=== PATIENT | male | born 1995 | race Caucasian/White ===

== ENCOUNTER 2017-02-18 08:31 | Emergency (ER) | payer OTHER ==
[~2017-02-18 08:31] MED LIST: CARAFATE EQUIVAL1 GM PO; PRILOSEC20 MG PO; PROTONIX40 M1 PO; ZOFRAN ODT4 MG PO
--- NOTE | 2017-02-18 10:23 | DIAGNOSTIC IMAGING REPORT ---
PROCEDURE: XR CHEST 2 VIEW INDICATION: CHEST PAIN TECHNIQUE: Two views. COMPARISON: 03/23/2016 FINDINGS: The cardiomediastinal contour is stable, within normal limits. The central vasculature is not congested. There is a hazy alveolar consolidation in the posterior right lower lobe with mild right hemithorax volume loss. The left lung is clear. No pleural effusion. The visualized osseous structures are intact. IMPRESSION: 1. Posterior right lower lobe pneumonia and/or atelectasis. 2. No effusion.
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
--- NOTE | 2017-02-18 14:02 | ED ORDER SUMMARY ---
..... Patient: MARLEN PEOPLES OrderSheet [facility] VisitID: [id number] [place] [address] 21y, M Registration Date/Time: 02/18/2017 ORDER SHEET Weight: 65.7 kg (stated) Allergies: Aspirin, Tylenol, Ibuprofen GENERAL ORDERS: UA-Culture if indicated Urgent (08:57 02/18/2017 Juancarlos Reyna) (Ack 8:58 TBergley) (11:10 TBergley) Chest 2V Urgent (09:16 02/18/2017 Juancarlos Reyna) (Ack 9:20 TBergley) (9:31 SReitz R.N.) Tag Maker (Continuous) (CP) (:02/18/2017 Juancarlos Reyna) (Ack 9:20 TBergley) (9:25 SReitz R.N.) CBC w Diff Urgent (:02/18/2017 Juancarlos Reyna) (Ack 9:20 TBergley) (9:37 SReitz R.N.) CMP Urgent (:18 02/18/2017 Juancarlos Reyna) (Ack 9:20 TBergley) (9:37 SReitz R.N.) PT with INR Urgent (:02/18/2017 Juancarlos Reyna) (Ack 9:20 TBergley) (9:37 SReitz R.N.) PTT Urgent (:02/18/2017 Juancarlos Reyna) (Ack 9:20 TBergley) (9:37 SReitz R.N.) Lipase Urgent (:02/18/2017 Juancarlos Reyna) (Ack 9:20 TBergley) (9:37 SReitz R.N.) Culture, Strep Screen Urgent (:02/18/2017 Juancarlos Reyna) (Ack 9:20 TBergley) (9:37 SReitz R.N.) Pulse oximeter (:02/18/2017 Juancarlos Reyna) (Ack 9:20 TBergley) (9:25 SReitz R.N.) MEDICATION ORDERS: GI Cocktail WHITE PO 30 mL (NOW) (09:30 02/18/2017 Juancarlos Reyna) (Ack 9:33 Gianluca R.N.) (9:38 Gianluca R.N.) Azithromycin PO 500 mg (NOW) (10:28 02/18/2017 Juancarlos Reyna) (Ack 10:30 Gianluca R.N.) (10:37 Gianluca R.N.) Tylenol PO 650 mg (NOW) (10:29 02/18/2017 Juancarlos Reyna) (Ack 10:30 Gianluca R.N.) (Cancelled: Patient Rvxsegc50:37 Gianluca R.NMoustapha) reports having hx of "liver problems from drinking." okay for one time dose today." Tylenol PO 650 mg (NOW) (11:17 02/18/2017 Gianluca R.N. verbal order read back to Juancarlos Reyna) (11:18 SReitz R.N.) IV FLUIDS: IV NS : initial bolus none -, then 1000 mL/hr for X1 (NOW) (09:05 02/18/2017 Gianluca R.NMoustapha per protocol) (9:06 Gianluca R.N.) Morphine IV 4 mg (HIGH ALERT MEDICATION, NOW) (09:16 02/18/2017 Juancarlos Reyna) (Ack 9:33 Gianluca R.N.) (9:40 SReitz R.N.) IV NS : initial bolus 1000 mL (1000 mL/hr), then none - for X1 (NOW) (11:37 02/18/2017 Juancarlos Reyna) (11:51 Elizaitz R.N.) Morphine IV 8 mg (HIGH ALERT MEDICATION, NOW) (12:22 02/18/2017 Juancarlos Renya) (Ack 12:27 Gianluca R.N.) (12:52 SReitz R.N.) ORDER SHEET NOTES: [Electronically signed by Miriam Charles R.N. (14:14 02/18/2017)] [Electronically signed by Berry Atkinson Dr. (14:16 02/18/2017)] [Electronically locked/signed by Miriam Charles R.N. (14:14 02/18/2017)]
--- NOTE | 2017-02-18 14:02 | ED CLINICAL REPORT ---
Clinical Report - Physicians/Mid Levels [facility] [address] [place] [address] 02/18/2017 8:32 Patient: MARLEN PEOPLES Time Seen: 904. Arrived- By private vehicle. Historian- patient. HISTORY OF PRESENT ILLNESS Chief Complaint: COUGH, SORE THROAT, FEVER, CHILLS and MUSCLE ACHES. This started past 1 week and is still present and worsening. It was abrupt in onset and has been constant but is not gone now. The illness is described as severe. The patient has had a cough, a sore throat, nasal congestion, fever and chills. He has had muscle aches and a nasal discharge. He has had chest discomfort (right). (reports hx of eosinophilic esophagitis with post tussive nausea and vomiting. reports having blood tinged sputum. also with diarrhea and intermittent generalized abdominal pain to the epigastrium. no swelling of the legs. No history of PE/DVT, no recent trauma or surgery. No hemoptysis. no family history of early cardiac disease.). Additional history - The patient has had contact with a sick family member. No recent travel. Similar symptoms previously: None. Recent medical care: Not recently seen/assessed. REVIEW OF SYSTEMS All systems otherwise negative, except as recorded above. PAST HISTORY See nurses notes. SOCIAL HISTORY Never smoker. Alcohol use. Patient is a recovering alcoholic. History of drug use. No recent travel. Is a local resident. FAMILY HISTORY (no family history of bleeding problems). ADDITIONAL NOTES The nursing notes have been reviewed. PHYSICAL EXAM Vital Signs: 02/18/2017 08:38 BP: 115/58. HR: 93. RR: 22. O2 saturation: 97%. Temp: 101.7 F. Oxygen saturation normal. Appearance: Alert. Patient in mild distress. (pleasant. non-toxic.). Eyes: Pupils equal, round and reactive to light. Eyes normal inspection. ENT: Ears normal. Nose normal. Moderate generalized pharyngeal erythema. No pharyngeal ulcerations. No right tonsillar exudate, right tonsillar abscess, right tonsillar swelling, left tonsillar exudate, left tonsillar abscess, left tonsillar swelling or left peritonsillitis. Pharynx normal. Uvula midline. (no brawny edema). Neck: Normal inspection. Neck supple. No meningeal signs or lymphadenopathy. CVS: Normal heart rate and rhythm. Heart sounds normal. Pulses normal. Respiratory: No respiratory distress. Breath sounds normal. No rales, rhonchi, wheezes or stridor. Abdomen: Soft and nontender. No organomegaly. Skin: Skin warm and dry. Normal skin color. No rash. Normal skin turgor. Extremities: Extremities exhibit normal ROM. No lower extremity edema. Neuro: Oriented X 3. No motor deficit. No sensory deficit. LABS, X-RAYS, AND EKG Chest X-ray: (PROCEDURE: XR CHEST 2 VIEW INDICATION: CHEST PAIN TECHNIQUE: Two views. COMPARISON: 03/23/2016 FINDINGS: The cardiomediastinal contour is stable, within normal limits. The central vasculature is not congested. There is a hazy alveolar consolidation in the posterior right lower lobe with mild right hemithorax volume loss. The left lung is clear. No pleural effusion. The visualized osseous structures are intact. IMPRESSION: 1. Posterior right lower lobe pneumonia and/or atelectasis. 2. No effusion.). Views: PA and lateral. The X-rays were independently viewed by me and interpreted by the radiologist. The X-rays were discussed with the radiologist (via pacs). Laboratory Tests: UA-Culture if indicated: (CHARLIE: 02/18/2017 11:00) ( MsgRcvd 02/18/2017 11:33) Final results Test Result Flag Units (Reference) URINE COLOR YELLOW URINE APPEARANCE CLEAR URINE GLUCOSE NEGATIVE (NEGATIVE) URINE BILIRUBIN NEGATIVE (NEGATIVE) URINE KETONE 1+ (NEGATIVE) URINE SPECIFIC GRAVITY 1.010 (1.010-1.030) URINE PH 6.5 (5.0-8.0) URINE PROTEIN NEGATIVE (NEGATIVE) URINE UROBILINOGEN 1.0 EU/dL (0.2-1.0) URINE NITRITE NEGATIVE (NEGATIVE) URINE BLOOD NEGATIVE (NEGATIVE) URINE LEUK ESTERASE NEGATIVE (NEGATIVE) URINE RBC NONE SEEN rbc/hpf (0-1) URINE WBC 3-5 wbc/hpf (0-1) URINE EPITHELIAL CELLS RARE EPI/hpf (0-5) URINE BACTERIA TRACE (<1+) (NONE SEEN) URINE COMMENT CULT NOT INDICATED URINE CULTURES ARE SET-UP BASED ON THE FOLLOWING CRITERIA:POSITIVE NITRITEPOSITIVE LEUKOCYTE ESTERASEGREATER THAN 10 WHITE BLOOD CELLSMODERATE (2+) OR GREATER BACTERIA CBC w Diff: (CHARLIE: 02/18/2017 09:00) ( [facility] 02/18/2017 09:36) Final results Test Result Flag Units (Reference) WHITE BLOOD COUNT 4.9 K/uL (4.5-11.5) RED BLOOD COUNT 5.09 M/uL (4.50-5.90) HEMOGLOBIN 15.2 gm/dL (13.5-17.5) HEMATOCRIT 44.0 % (41.0-53.0) MEAN CELL VOLUME 86 fL (80-100) MEAN CORPUSCULAR HGB 30 pg (26-34) MEAN CORPUSCULAR HGB CONC 35 g/dL (31-37) RED CELL DISTRIBUTION WIDTH 12.4 % (11.6-14.8) PLATELET COUNT 110 L K/uL (150-400) NEUTROPHIL % 74.9 % (50-75) LYMPH % 19.5 L % (25-40) MONO % 5.6 % (3-14) EOSINOPHIL % 0 % (0-4) BASOPHIL % 0 % (0-2) PT with INR: (CHARLIE: 02/18/2017 09:00) ( [facility] 02/18/2017 09:36) Final results Test Result Flag Units (Reference) INR 1.1 (0.8-1.2) Low Intensity Therapy: INR 1.5-2.0 PT range 18.5-23.1Mod.Intensity Therapy: INR 2.0-3.0 PT range 23.1-31.5High Intensity Therapy: INR 2.5-3.5 PT range 27.4-35.5High Intensity Therapy 2: INR 3.0-4.0 PT range 31.5-39.3 APTT 36 H SECONDS (24-34) CMP: (CHARLIE: 02/18/2017 09:00) ( [facility] 02/18/2017 09:58) Final results Test Result Flag Units (Reference) GLUCOSE 96 mg/dL (70-110) BUN 11 mg/dL (7-18) CREATININE 1.1 mg/dL (0.6-1.3) Estimated GFR >60 mL/min Estimated GFR- >60 mL/min Note: Persistent reduction over 3 months in eGFR<60 mL/min/1.73 m2 defines CKD. Patients with eGFR values>=60 mL/min/1.73 m2 may also have CKD if evidence ofpersistent proteinuria. Additional information may be foundat www.kidney.org. SODIUM 137 mmol/L (136-145) POTASSIUM 3.3 L mmol/L (3.5-5.1) CHLORIDE 97 L mmol/L (98-107) CARBON DIOXIDE 30 mmol/L (21-32) CALCIUM 8.3 L mg/dL (8.5-10.1) TOTAL PROTEIN 7.0 g/dL (6.4-8.2) ALBUMIN 3.4 g/dL (3.3-5.0) BILIRUBIN, TOTAL 0.6 mg/dL (0.0-1.0) ALKALINE PHOSPHATASE 54 U/L (46-116) AST (SGOT) 38 H U/L (15-37) ALT (SGPT) 21 U/L (12-78) LIPASE 128 U/L (73-393) Culture, Strep Screen: (CHARLIE: 02/18/2017 09:35) ( MsgRcvd 02/18/2017 10:25) Final results Test Result Flag Units (Reference) RAPID STREP SCREEN - THROAT CALLED TO: ERICKA KIRBY RN -- DATE: 02/18/17 POSITIVE SCREEN: RAPID STREP SCREEN: POSITIVE FOR GROUP A STREP . PROGRESS AND PROCEDURES Course of Care: he patient is a pleasant 21-year-old male presenting for evaluation of fever and symptoms that are likely upper respiratory tract in nature. Differential diagnosis includes pneumonia, strep pharyngitis, viral pharyngitis or viral syndrome. Patient is agreeable to the treatment and plan. Patient is also reporting abdominal pain, however on examination appears to be rightlower chest in location. Symptoms are atypical and would be concerning for a pneumonia. No concern for pulmonary embolism or atypical reason dish return for acute myocardial infarction based on patient's age and lack ofrisk factors otherwise. Fluids and pain medication of been ordered. Patient is agreeable to the treatment plan. Patient offered Tylenol for the fever. head discussion with the patient in regards to his history of liver disease however patient has been clean and sober for several months and will check on patient's liver function studies for evaluation of any hepatitis. The patient does have hepatitis, will not recommend patient have Tylenol. patient without signs of cirrhosis. INR is noted to be normal. Feel the benefits of a single dose ofTylenol here in the emergency Department outweighs the risks. The patient's workup was remarkable for a positive strep screen as well as pneumonia noted on the right lower lobe. Patient reports not feeling improved with the medications provided. Additional liter fluid and pain medication has been ordered. Because the patient reported not feeling better, encouraged patient to be admitted to the hospital however patient declines at this time. Patient was agreeable to staying here in the emergency Department further for more monitoring. patient was monitored in the emergency department and had significant improvement of the symptoms. Discussed with the patient is workup here in the emergency department including diagnosis, home care, follow-up, and return precautions. All questions have been answered. The patient expressed understanding of these instructions and was agreeable to them. Disposition: Discharged. Condition: good. CLINICAL IMPRESSION 02/18/2017 12:33 BP: 115/60. HR: 77. RR: 14. O2 saturation: 93%. 02/18/2017 11:18 Temp: 102.8 F. Blood pressure normal. Febrile. Oxygen saturation normal. Bacterial pneumonia. Empiric antibiotics given in the ED. Mild dehydration Acute streptococcal pharyngitis INSTRUCTIONS Warnings: GENERAL WARNINGS: Return or contact your physician immediately if your condition worsens or changes unexpectedly, if not improving as expected, or if other problems arise. Specifically return if pain, vomiting, bleeding, breathing difficulty or fever. Your Current Medications: CONTINUE TAKING THE FOLLOWING MEDICATIONS: "inhaler for esophagitis"*. Pantoprazole Sodium Oral : 20 mg daily. Prescription Medications: Zithromax Z-Hay: Take according to package instructions. No refills. Substitution is permissible. morphine sulfate IR 15 mg tab. Take 1 tab PO every 6 hours as needed for pain. Disp 12 tabs. No refills. Substitution allowed. Follow-up: Return to the emergency department as needed. Follow up with your doctor in two days. Reason for referral: recheck today's concerns. Summary of care provided to patient via paper. Screening today revealed the patient's blood pressure to be in the normal range. The patient should follow up with a primary care provider for blood pressure management. Understanding of the discharge instructions verbalized by patient. (Electronically signed by Berry Atkinson Dr. 02/18/2017 14:16)
--- NOTE | 2017-02-18 14:02 | ED ORDER SUMMARY ---
..... Patient: MARLEN PEOPLES OrderSheet [facility] VisitID: [id number] [place] [address] 21y, M Registration Date/Time: 02/18/2017 ORDER SHEET Weight: 65.7 kg (stated) Allergies: Aspirin, Tylenol, Ibuprofen GENERAL ORDERS: UA-Culture if indicated Urgent (08:57 02/18/2017 Juancarlos Reyna) (Ack 8:58 TBergley) (11:10 TBergley) Chest 2V Urgent (09:16 02/18/2017 Juancarlos Reyna) (Ack 9:20 TBergley) (9:31 SReitz R.N.) Coal Crusher Operator (Continuous) (CP) (:02/18/2017 Juancarlos Reyna) (Ack 9:20 TBergley) (9:25 SReitz R.N.) CBC w Diff Urgent (:02/18/2017 Juancarlos Reyna) (Ack 9:20 TBergley) (9:37 SReitz R.N.) CMP Urgent (:18 02/18/2017 Juancarlos Reyna) (Ack 9:20 TBergley) (9:37 SReitz R.N.) PT with INR Urgent (:02/18/2017 Juancarlos Reyna) (Ack 9:20 TBergley) (9:37 SReitz R.N.) PTT Urgent (:02/18/2017 Juancarlos Reyna) (Ack 9:20 TBergley) (9:37 SReitz R.N.) Lipase Urgent (:02/18/2017 Juancarlos Reyna) (Ack 9:20 TBergley) (9:37 SReitz R.N.) Culture, Strep Screen Urgent (:02/18/2017 Juancarlos Reyna) (Ack 9:20 TBergley) (9:37 SReitz R.N.) Pulse oximeter (:02/18/2017 Juancarlos Reyna) (Ack 9:20 TBergley) (9:25 SReitz R.N.) MEDICATION ORDERS: GI Cocktail WHITE PO 30 mL (NOW) (09:30 02/18/2017 Juancarlos Reyna) (Ack 9:33 Gianluca R.N.) (9:38 Gainluca R.N.) Azithromycin PO 500 mg (NOW) (10:28 02/18/2017 Juancarlos Reyna) (Ack 10:30 Gianluca R.N.) (10:37 Gianluca R.N.) Tylenol PO 650 mg (NOW) (10:29 02/18/2017 Juancarlos Reyna) (Ack 10:30 Gianluca R.N.) (Cancelled: Patient Tbuptap93:37 Gianluca R.NMoustapha) reports having hx of "liver problems from drinking." okay for one time dose today." Tylenol PO 650 mg (NOW) (11:17 02/18/2017 Gianluca R.N. verbal order read back to Juancarlos Reyna) (11:18 SReitz R.N.) IV FLUIDS: IV NS : initial bolus none -, then 1000 mL/hr for X1 (NOW) (09:05 02/18/2017 Gianluca R.NMoustapha per protocol) (9:06 Gianluca R.N.) Morphine IV 4 mg (HIGH ALERT MEDICATION, NOW) (09:16 02/18/2017 Juancarlos Reyna) (Ack 9:33 Gianluca R.N.) (9:40 SReitz R.N.) IV NS : initial bolus 1000 mL (1000 mL/hr), then none - for X1 (NOW) (11:37 02/18/2017 Juancarlos Reyna) (11:51 Elizaitz R.N.) Morphine IV 8 mg (HIGH ALERT MEDICATION, NOW) (12:22 02/18/2017 Juancarlos Reyna) (Ack 12:27 Gianluca R.N.) (12:52 SReitz R.N.) ORDER SHEET NOTES: [Electronically signed by Miriam Charles R.N. (14:14 02/18/2017)] [Electronically signed by Berry Atkinson Dr. (14:16 02/18/2017)] [Electronically locked/signed by Miriam Charles R.N. (14:14 02/18/2017)]
--- NOTE | 2017-02-18 14:16 | ED DISCHARGE INSTRUCTIONS ---
Patient: MARLEN PEOPLES General Instructions [facility] VisitID: [id number] [place] [address] 21y, M Registration Date/Time: 02/18/2017 02/18/2017 12:33 BP: 115/60. HR: 77. RR: 14. O2 saturation: 93%. 02/18/2017 11:18 Temp: 102.8 F. Blood pressure normal. Febrile. Oxygen saturation normal. Bacterial pneumonia. Empiric antibiotics given in the ED. Mild dehydration Acute streptococcal pharyngitis INSTRUCTIONS Warnings: GENERAL WARNINGS: Return or contact your physician immediately if your condition worsens or changes unexpectedly, if not improving as expected, or if other problems arise. Specifically return if pain, vomiting, bleeding, breathing difficulty or fever. Your Current Medications: CONTINUE TAKING THE FOLLOWING MEDICATIONS: "inhaler for esophagitis"*. Pantoprazole Sodium Oral : 20 mg daily. Prescription Medications: Zithromax Z-Hay: Take according to package instructions. No refills. Substitution is permissible. morphine sulfate IR 15 mg tab. Take 1 tab PO every 6 hours as needed for pain. Disp 12 tabs. No refills. Substitution allowed. Follow-up: Return to the emergency department as needed. Follow up with your doctor in two days. Reason for referral: recheck today's concerns. Summary of care provided to patient via paper. Screening today revealed the patient's blood pressure to be in the normal range. The patient should follow up with a primary care provider for blood pressure management. Understanding of the discharge instructions verbalized by patient. ADDITIONAL INFORMATION Pharyngitis: Strep [Confirmed] Your test for strep throat was positive. Strep throat is a contagious illness. It is spread by coughing, kissing or by touching others after touching your mouth or nose. Symptoms include throat pain which is worse with swallowing, aching all over, headache and fever. You will be treated with an antibiotic which should make you start to feel better within 1-2 days. Home Care: Rest at home and drink plenty of fluids to avoid dehydration. No school or work for the first two days on antibiotics. You will not be contagious after this time and if you are feeling better, you can return to school or work. Take your antibiotics for a full 10 days, even if you feel better after the first few days of treatment. This is very important to prevent heart or kidney disease that can result as a complication of untreated strep throat infection. Children: Use acetaminophen (Tylenol) for fever, fussiness or discomfort. In infants over six months of age, you may use ibuprofen (Children's Motrin) instead of Tylenol. [NOTE: If your child has chronic liver or kidney disease or ever had a stomach ulcer or GI bleeding, talk with your doctor before using these medicines.] (Aspirin should never be used in anyone under 18 years of age who is ill with a fever. It may cause severe liver damage.)Adults: You may use acetaminophen (Tylenol) or ibuprofen (Motrin, Advil) to control pain or fever, unless another medicine was prescribed for this. [NOTE: If you have chronic liver or kidney disease or ever had a stomach ulcer or GI bleeding, talk with your doctor before using these medicines.] Throat lozenges or sprays (Chloraseptic and others) will reduce pain. Gargling with warm salt water will also reduce throat pain. Dissolve 1/2 teaspoon of salt in 1 glass of warm water. This is especially useful just before meals. Follow Up with your doctor or as directed by our staff if you are not improving over the next week. Get Prompt Medical Attention if any of the following occur: Fever of 100.4F (38C) oral or higher, not better with fever medication New or worsening ear pain, sinus pain or headache Painful lumps in the back of your neck Unable to swallow liquids or open your mouth wide due to throat pain Trouble breathing or noisy breathing Muffled voice New rash Pneumonia (Adult) Pneumonia is an infection deep within the lung, in the small air sacs (alveoli). It may be due to a virus or bacteria and is usually treated with an antibiotic. Severe cases require treatment in the hospital. Milder cases can be treated at home. Symptoms usually start to improve during the first2 days of treatment. Home Care: Rest at home for the first 23 days or until you feel stronger. When resuming activity, dont let yourself become overly tired. Avoid exposure to cigarette smoke (yours or others). You may use acetaminophen (Tylenol) or ibuprofen (Motrin, Advil) to control fever or pain, unless another medicine was prescribed. [NOTE: If you have chronic liver or kidney disease or ever had a stomach ulcer or GI bleeding, talk with your doctor before using these medicines.] (Aspirin should never be used in anyone under 18 years of age who is ill with a fever. It may cause severe liver damage.) Your appetite may be poor so a light diet is fine. Keep well hydrated by drinking 68 glasses of fluids per day (water, sport drinks such as Gatorade, sodas without caffeine, juices, tea, soup, etc.). This will help loosen secretions in the lung, making it easier for you to cough up the phlegm (sputum). If you also have heart or kidney disease, check with your doctor before you drink extra amounts of fluids. Finish all antibiotic medicine prescribed, even if you are feeling better after a few days. Follow Up with your doctor in the next 23 days (or as advised) to be sure you are responding properly to the medicine. [NOTE: If you are age 65 or older, or if you have chronic lung disease (asthma, emphysema or COPD), we recommendthe pneumococcal vaccination and a yearlyinfluenzavaccination(flu-shot) every . Ask your doctor about this.] Get Prompt Medical Attention if any of the following occur: Not getting better within the first 48 hours of treatment Increasing shortness of breath or rapid breathing (over 25 breaths/minute) Coughing up blood or increasing chest pain with breathing Fever of 100.4F (38C) oral or higher, not better with fever medication Increasing weakness, dizziness or fainting Increasing thirst or dry mouth Sinus pain, headache or a stiff neck Chest pain not caused by coughing Dehydration (Adult) Dehydration occurs when your body loses too much fluid. This may be the result of vomiting a lot or from diarrhea,sweating a lot, or a high fever. It may also happen if you dont drink enough fluid when youre sick. Misuse of diuretics (water pills) can also be a cause. Symptoms include thirst and feeling dizzy, weak, fatigued, or very drowsy. The diet described below is usually enough to treat most cases. Sometimes you may needmedicine. Home Care Follow these guidelines for home care: Drink at least 12 8-ounce glasses of fluid every day to overcome the dehydration. Fluid may include water; orange juice; lemonade; apple, grape, and cranberry juice; clear fruit drinks; electrolyte replacement and sports drinks; and teas and coffee without caffeine. If you have been diagnosed with a kidney disease, ask your doctor how much and what types of fluids you should drink to prevent dehydration. If you have kidney disease, drinking too much fluid can cause it build up in the your body and be dangerous to your health. If you have fever, muscle aching, or headache from a viral syndrome, you may useacetaminophen or ibuprofen, unless another medicine was prescribed for this.If you have chronic liver or kidney disease or ever had a stomach ulcer or GI bleeding, talk with your doctor before using these medicines. Don't take aspirin if you are younger than 18 and are ill with a fever.Aspirin raises the chance forsevere liver injury. Follow-up care Follow up with your health care provider if you don't get better in the next 24 to 48 hours. When to seek medical care Get prompt medical attention if any of theseoccur: Continued vomiting (cant keep liquids down) Frequent diarrhea (more than 5 times a day); blood (red or black color) or mucus in diarrhea Blood in vomit or stool Swollen abdomen or increasing abdominal pain Weakness, dizziness, or fainting Unusually drowsy or confused Reduced urine output or extreme thirst Fever of 100.4 F (38 C) oral or higher that does not get better with fever medication Azithromycin Oral tablet What is this medicine? AZITHROMYCIN (az ith siddharth MYE sin) is a macrolide antibiotic. It is used to treat or prevent certain kinds of bacterial infections. It will not work for colds, flu, or other viral infections. How should I use this medicine? Take this medicine by mouth with a full glass of water. Follow the directions on the prescription label. The tablets can be taken with food or on an empty stomach. If the medicine upsets your stomach, take it with food. Take your medicine at regular intervals. Do not take your medicine more often than directed. Take all of your medicine as directed even if you think your are better. Do not skip doses or stop your medicine early. Talk to your child development specialist regarding the use of this medicine in children. Special care may be needed. What side effects may I notice from receiving this medicine? Side effects that you should report to your doctor or health clinical care manager as soon as possible: allergic reactions like skin rash, itching or hives, swelling of the face, lips, or tongue confusion, nightmares or hallucinations dark urine difficulty breathing hearing loss irregular heartbeat or chest pain pain or difficulty passing urine redness, blistering, peeling or loosening of the skin, including inside the mouth white patches or sores in the mouth yellowing of the eyes or skin Side effects that usually do not require medical attention (report to your doctor or health clinical care manager if they continue or are bothersome): diarrhea dizziness, drowsiness headache stomach upset or vomiting tooth discoloration vaginal irritation What may interact with this medicine? Do not take this medicine with any of the following medications: lincomycin This medicine may also interact with the following medications: amiodarone antacids cyclosporine digoxin magnesium nelfinavir phenytoin warfarin What if I miss a dose? If you miss a dose, take it as soon as you can. If it is almost time for your next dose, take only that dose. Do not take double or extra doses. Where should I keep my medicine? Keep out of the reach of children. Store at room temperature between 15 and 30 degrees C (59 and 86 degrees F). Throw away any unused medicine after the expiration date. What should I tell my health care provider before I take this medicine? They need to know if you have any of these conditions: kidney disease liver disease irregular heartbeat or heart disease an unusual or allergic reaction to azithromycin, erythromycin, other macrolide antibiotics, foods, dyes, or preservatives or trying to get breast-feeding What should I watch for while using this medicine? Tell your doctor or health clinical care manager if your symptoms do not improve. Do not treat diarrhea with over the counter products. Contact your doctor if you have diarrhea that lasts more than 2 days or if it is severe and watery. This medicine can make you more sensitive to the sun. Keep out of the sun. If you cannot avoid being in the sun, wear protective clothing and use sunscreen. Do not use sun lamps or tanning beds/booths. You have been given the following additional information: Pharyngitis, Strep (Confirmed) Pneumonia (Adult) Dehydration (Adult) Azithromycin Oral tablet (Electronically signed by Berry Atkinson Dr. 02/18/2017 14:16)
--- NOTE | 2017-02-18 14:16 | ED MED RECONCILIATION SUMMARY ---
Patient: MARLEN PEOPLES Medication Reconciliation Report [facility] VisitID: [id number] [address] [place] [address] 21y, M Registration Date/Time: 02/18/2017 Weight: 65.7 kg Height/Length: 60 in. BMI: 28.3 ALLERGIES: Aspirin, Ibuprofen, Tylenol The patient's Home Medications are listed below: CONTINUE TAKING THE FOLLOWING MEDICATIONS: "inhaler for esophagitis" Pantoprazole Sodium Oral 20 mg, daily The source(s) of the original Home Medication information: Not obtained. The following Medications were given to the patient in the Emergency Department: IV NS IV Fluids bolus 0, then 1000 mL/hr, administered: 02/18/2017 9:06:00 AM GI Cocktail [PO] PO 30 mL, administered: 02/18/2017 9:38:00 AM Morphine [IVP] IVP 4 mg, administered: 02/18/2017 9:38:00 AM Azithromycin [PO] PO 500 mg, administered: 02/18/2017 10:37:00 AM Tylenol [PO] PO 650 mg, administered: 02/18/2017 11:18:00 AM IV NS IV Fluids bolus 0, then 1000 mL/hr, administered: 02/18/2017 11:51:00 AM Morphine [IVP] IVP 8 mg, administered: 02/18/2017 12:52:00 PM The following Medications were prescribed to the patient: morphine sulfate IR 15 mg tab. Take 1 tab PO every 6 hours as needed for pain. Disp 12 tabs. No refills. Substitution allowed. -- Berry Atkinson Dr. Zithromax Z-Hay: Take according to package instructions. No refills. Substitution is permissible. -- Berry Atkinson Dr.
--- NOTE | 2017-02-18 14:16 | ED MED RECONCILIATION SUMMARY ---
Patient: MARLEN PEOPLES Medication Reconciliation Report [facility] VisitID: [id number] [address] [place] [address] 21y, M Registration Date/Time: 02/18/2017 Weight: 65.7 kg Height/Length: 60 in. BMI: 28.3 ALLERGIES: Aspirin, Ibuprofen, Tylenol The patient's Home Medications are listed below: CONTINUE TAKING THE FOLLOWING MEDICATIONS: "inhaler for esophagitis" Pantoprazole Sodium Oral 20 mg, daily The source(s) of the original Home Medication information: Not obtained. The following Medications were given to the patient in the Emergency Department: IV NS IV Fluids bolus 0, then 1000 mL/hr, administered: 02/18/2017 9:06:00 AM GI Cocktail [PO] PO 30 mL, administered: 02/18/2017 9:38:00 AM Morphine [IVP] IVP 4 mg, administered: 02/18/2017 9:38:00 AM Azithromycin [PO] PO 500 mg, administered: 02/18/2017 10:37:00 AM Tylenol [PO] PO 650 mg, administered: 02/18/2017 11:18:00 AM IV NS IV Fluids bolus 0, then 1000 mL/hr, administered: 02/18/2017 11:51:00 AM Morphine [IVP] IVP 8 mg, administered: 02/18/2017 12:52:00 PM The following Medications were prescribed to the patient: morphine sulfate IR 15 mg tab. Take 1 tab PO every 6 hours as needed for pain. Disp 12 tabs. No refills. Substitution allowed. -- Berry Atkinson Dr. Zithromax Z-Hay: Take according to package instructions. No refills. Substitution is permissible. -- Berry Atkinson Dr.
--- NOTE | 2017-02-18 14:16 | ED MAR SUMMARY ---
..... Medication Administration Record [facility] [address] [place] [address] Patient: MARLEN PEOPLES Visit ID: [id number] 21y, M Weight: 65.7 kg Height/Length: 60 in BMI: 28.3 ALLERGIES: Ibuprofen, Tylenol, Aspirin Start 09:06 02/18/2017 Miriam Charles R.N. Medication Administered: IV NS (SALINE), Dose: IV Fluids over 1 hour(s), Rate: 1000 mL/hr, Dispensed: 1000 mL bag, Site: #1 right forearm. Medication Ordered: IV NS : initial bolus none -, then 1000 mL/hr for X1 (NOW). Given 09:38 02/18/2017 Miriam Charles R.N. Medication Administered: MORPHINE [IVP], Dose: 4 mg IVP over 1 minute(s), Site: #1 right forearm. Medication Ordered: Morphine IV 4 mg (HIGH ALERT MEDICATION, NOW). Given 09:02/18/2017 Miriam Charles R.N. Medication Administered: GI COCKTAIL [PO] (MAGNESIUM-ALUMINUM), Dose: 30 mL PO. Medication Ordered: GI Cocktail WHITE PO 30 mL (NOW). Given 10:37 02/18/2017 Miriam Charles R.N. Medication Administered: AZITHROMYCIN [PO], Dose: 500 mg PO. Medication Ordered: Azithromycin PO 500 mg (NOW). Given 11:18 02/18/2017 Miriam Charles R.N. Medication Administered: TYLENOL [PO] (ACETAMINOPHEN), Dose: 650 mg PO. Medication Ordered: Tylenol PO 650 mg (NOW). Start 11:51 02/18/2017 Miriam Charles R.N., Stop 12:31 02/18/2017 Miriam Charles R.N. Medication Administered: IV NS (SALINE), Dose: IV Fluids over 1 hour(s), Rate: 1000 mL/hr, Dispensed: 1000 mL bag, Site: #1 right forearm. Medication Ordered: IV NS : initial bolus 1000 mL (1000 mL/hr), then none - for X1 (NOW). Given 12:52 02/18/2017 Miriam Charles R.N. Medication Administered: MORPHINE [IVP], Dose: 8 mg IVP over 3 minute(s), Site: #1 right forearm. Medication Ordered: Morphine IV 8 mg (HIGH ALERT MEDICATION, NOW).
--- NOTE | 2017-02-18 14:16 | ED MAR SUMMARY ---
..... Medication Administration Record [facility] [address] [place] [address] Patient: MARLEN PEOPLES Visit ID: [id number] 21y, M Weight: 65.7 kg Height/Length: 60 in BMI: 28.3 ALLERGIES: Ibuprofen, Tylenol, Aspirin Start 09:06 02/18/2017 Miriam Charles R.N. Medication Administered: IV NS (SALINE), Dose: IV Fluids over 1 hour(s), Rate: 1000 mL/hr, Dispensed: 1000 mL bag, Site: #1 right forearm. Medication Ordered: IV NS : initial bolus none -, then 1000 mL/hr for X1 (NOW). Given 09:38 02/18/2017 Miriam Charles R.N. Medication Administered: MORPHINE [IVP], Dose: 4 mg IVP over 1 minute(s), Site: #1 right forearm. Medication Ordered: Morphine IV 4 mg (HIGH ALERT MEDICATION, NOW). Given 09:02/18/2017 Miriam Charles R.N. Medication Administered: GI COCKTAIL [PO] (MAGNESIUM-ALUMINUM), Dose: 30 mL PO. Medication Ordered: GI Cocktail WHITE PO 30 mL (NOW). Given 10:37 02/18/2017 Miriam Charles R.N. Medication Administered: AZITHROMYCIN [PO], Dose: 500 mg PO. Medication Ordered: Azithromycin PO 500 mg (NOW). Given 11:18 02/18/2017 Miriam Charles R.N. Medication Administered: TYLENOL [PO] (ACETAMINOPHEN), Dose: 650 mg PO. Medication Ordered: Tylenol PO 650 mg (NOW). Start 11:51 02/18/2017 Miriam Charles R.N., Stop 12:31 02/18/2017 Miriam Charles R.N. Medication Administered: IV NS (SALINE), Dose: IV Fluids over 1 hour(s), Rate: 1000 mL/hr, Dispensed: 1000 mL bag, Site: #1 right forearm. Medication Ordered: IV NS : initial bolus 1000 mL (1000 mL/hr), then none - for X1 (NOW). Given 12:52 02/18/2017 Miriam Charles R.N. Medication Administered: MORPHINE [IVP], Dose: 8 mg IVP over 3 minute(s), Site: #1 right forearm. Medication Ordered: Morphine IV 8 mg (HIGH ALERT MEDICATION, NOW).
== END 2017-02-18 14:09 | disposition home or self-care (01) ==
LOC: ED SRH 08:31
DX: J15.9 Unspecified bacterial pneumonia (principal); J02.0 Streptococcal pharyngitis; E86.0 Dehydration; Z79.899 Other long term (current) drug therapy; Z88.6 Allergy status to analgesic agent
CPT/HCPCS: 90004; 90100; 90154; 92235; 94001; 94060; 95059

== ENCOUNTER 2017-03-10 18:33 | Emergency (ER) | payer OTHER ==
--- NOTE | 2017-03-10 19:46 | DIAGNOSTIC IMAGING REPORT ---
PROCEDURE: XR HAND 3 OR 4 VIEWS - RIGHT INDICATION: TRAUMA/INJURY TECHNIQUE: Four views. COMPARISON: None FINDINGS: Fracture of the distal second metacarpal with volar and ulnar angulation of the distal fragment. No additional abnormalities pill IMPRESSION: 1. Left second metacarpal fracture.
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
--- NOTE | 2017-03-10 20:34 | ED ORDER SUMMARY ---
..... Patient: MARLEN PEOPLES OrderSheet [facility] VisitID: [id number] [address] [place] [address] 21y, M Registration Date/Time: 03/10/2017 ORDER SHEET Weight: 83.9 kg (stated) Allergies: Aspirin, Trying not to take tylenol or ibuprofen due to pancreatitis GENERAL ORDERS: Hand 3 or 4V Right Urgent (19:00 03/10/2017 DDean R.N. per protocol) (Ack 19:04 [facility] ER Tech1) (19:27 DDean R.N.) Splint (UE) (Left) (Volar) (Volar) (20:26 03/10/2017 Dion STEVENS-C) (Ack 20:44 RKaruga) (21:[facility] International Student Counselor) Sling - arm (21:16 03/10/2017 [facility] ER International Student Counselor verbal order read back to Dion STEVENS-C) (Ack 21:16 [facility] ER International Student Counselor) (22:38 DDean R.N.) MEDICATION ORDERS: Dilaudid IM 1 mg (HIGH ALERT MEDICATION, NOW) (20:37 03/10/2017 DDean R.N. verbal order read back to Dion STEVENS-C) (20:37 DDean R.N.) IV FLUIDS: ORDER SHEET NOTES: [Electronically signed by Michelle Trevino R.N. (22:38 03/10/2017)] [Electronically signed by Kelsi Zaragoza PA-C (00:21 03/11/2017)] [Electronically locked/signed by Michelle Trevino R.N. (22:38 03/10/2017)]
--- NOTE | 2017-03-10 20:34 | ED ORDER SUMMARY ---
..... Patient: MARLEN PEOPLES OrderSheet [facility] VisitID: [id number] [address] [place] [address] 21y, M Registration Date/Time: 03/10/2017 ORDER SHEET Weight: 83.9 kg (stated) Allergies: Aspirin, Trying not to take tylenol or ibuprofen due to pancreatitis GENERAL ORDERS: Hand 3 or 4V Right Urgent (19:00 03/10/2017 DDean R.N. per protocol) (Ack 19:04 [facility] ER Tech1) (19:27 DDean R.N.) Splint (UE) (Left) (Volar) (Volar) (20:26 03/10/2017 Dion STEVENS-C) (Ack 20:44 RKaruga) (21:16 [facility] ER Pump Attendant) Sling - arm (21:16 03/10/2017 [facility] ER Pump Attendant verbal order read back to Dion STEVENS-C) (Ack 21:16 [facility] ER Pump Attendant) (22:38 DDean R.N.) MEDICATION ORDERS: Dilaudid IM 1 mg (HIGH ALERT MEDICATION, NOW) (20:37 03/10/2017 DDean R.N. verbal order read back to Dion STEVENS-C) (20:37 DDean R.N.) IV FLUIDS: ORDER SHEET NOTES: [Electronically signed by Michelle Trevino R.N. (22:38 03/10/2017)] [Electronically signed by Kelsi Zaragoza PA-C (00:21 03/11/2017)] [Electronically locked/signed by Michelle Trevino R.N. (22:38 03/10/2017)]
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
--- NOTE | 2017-03-11 00:22 | ED MAR SUMMARY ---
..... Medication Administration Record [facility] [address] [place] [address] Patient: MARLEN PEOPLES Visit ID: [id number] 21y, M Weight: 83.9 kg Height/Length: 72 in BMI: 25.1 ALLERGIES: Trying not to take tylenol or ibuprofen due to pancreatitis, Aspirin Given 20:37 03/10/2017 Uriel, Bennie Martinez. Medication Administered: DILAUDID [IM] (HYDROMORPHONE HCL PF), Dose: 1 mg IM. Medication Ordered: Dilaudid IM 1 mg (HIGH ALERT MEDICATION, NOW).
--- NOTE | 2017-03-11 00:22 | ED MED RECONCILIATION SUMMARY ---
Patient: MARLEN PEOPLES Medication Reconciliation Report [facility] VisitID: [id number] [address] [place] [address] 21y, M Registration Date/Time: 03/10/2017 Weight: 83.9 kg Height/Length: 72 in. BMI: 25.1 ALLERGIES: Aspirin, Trying not to take tylenol or ibuprofen due to pancreatitis The patient's Home Medications are listed below: CONTINUE TAKING THE FOLLOWING MEDICATIONS: "inhaler for esophagitis" Pantoprazole Sodium Oral 20 mg, daily The source(s) of the original Home Medication information: Not obtained. The following Medications were given to the patient in the Emergency Department: Dilaudid [IM] IM 1 mg, administered: 03/10/2017 8:37:00 PM The following Medications were prescribed to the patient: Dilaudid 2 mg: take 1 tablet orally every 12 hours as needed for pain. Dispense five (5). No refill. Substitution is permissible. -- Kelsi Zaragoza PA-C
--- NOTE | 2017-03-11 00:22 | ED DISCHARGE INSTRUCTIONS ---
Patient: MARLEN PEOPLES General Instructions [facility] VisitID: [id number] [place] [address] 21y, M Registration Date/Time: 03/10/2017 Closed displaced and mildly angulated fracture of the neck of the second metacarpal of the right hand (it is displaced over 50%, needs to see hand surgeon next week.). INSTRUCTIONS Apply ice. Wear fiberglass splint for four weeks until better (until you see the hand surgeon). Do not work with left hand for four days until better. No dietary restrictions. Warnings: COMPLICATIONS: Complications from this condition are possible. Future problems may include loss of function, pain, deformity and poor fracture healing. It is important to follow up with a physician for further evaluation and treatment. Your Current Medications: CONTINUE TAKING THE FOLLOWING MEDICATIONS: "inhaler for esophagitis"*. Pantoprazole Sodium Oral : 20 mg daily. Prescription Medications: Dilaudid 2 mg: take 1 tablet orally every 12 hours as needed for pain. Dispense five (5). No refill. Substitution is permissible. Follow-up: Follow up with a hand surgeon Sunday. Call for an appointment. Reason for referral: displaced 2nd metacarpal fracture. Understanding of the discharge instructions verbalized by patient. Follow-up with: Bruce Angel MD, Orthopedic Surgeon, , [address], , [place], [id number] Follow up Sunday. Call for an appointment. Reason for referral: displaced 2nd metacarpal fracture left hand, over 50% displacement. ADDITIONAL INFORMATION Boxer Fracture You have a fracture (break) of one of the bones in your hand. This causes pain, swelling and sometimes bruising. This injury is treated with a splint or cast. It takes about 4-6 weeks to heal. Surgery may be needed for severe injuries. After the bone has healed, it is common for one knuckle to be slightly lower than the others, even if the bone was "set". This may be seen only when you make a fist and will not affect hand function. Home Care: 1) Keep your arm elevated to reduce pain and swelling. When sitting or lying down elevate your arm above the level of your heart. You can do this by placing your arm on a pillow that rests on your chest or on a pillow at your side. This is most important during the first 48 hours after injury. 2) Apply an ice pack (ice cubes in a plastic bag, wrapped in a towel) over the injured area for 20 minutes every 1-2 hours the first day. You can place the ice pack inside the sling and directly over the splint/cast. Continue with ice packs 3-4 times a day for the next two days, then as needed for the relief of pain and swelling. 3) Keep the cast/splint completely dry at all times. Bathe with your cast/splint out of the water, protected with a large plastic bag, rubber-banded at the top end. If a fiberglass cast/splint gets wet, you can dry it with a hair-dryer. 4) You may use acetaminophen (Tylenol) or ibuprofen (Motrin, Advil) to control pain, unless another pain medicine was prescribed. [ NOTE : If you have chronic liver or kidney disease or ever had a stomach ulcer or GI bleeding, talk with your doctor before using these medicines.] 5) If you cut, punctured or scraped your hand during this injury, there is a risk of infection. Watch for signs of infection listed below. Finish any antibiotics prescribed. Follow Up With Your Doctor Within One Week To Be Sure The Bone Is Healing Properly, Or As Advised By Our Staff. [NOTE: A radiologist will review any X-rays that were taken. We will notify you of any new findings that may affect your care.] Get Prompt Medical Attention If Any Of The Following Occur: The cast or splint becomes wet or soft Increased tightness or pain under the cast or splint Fingers become swollen, cold, blue, numb or tingly Bad odor from the splint/cast or you see wound fluid staining the cast Signs of infection: Fever, redness, warmth, swelling or drainage from the wound Fever of 100.4F (38C) or higher, or as directed by your healthcare provider Splint Care, Fiberglass The following will help you care for your splint: It will take up totwo hours for your fiber glass splint to fully harden; therefore, do notapply any pressure on it during that time or else it may break. To prevent swelling under the splint, for thefirst 48 hours: If the splint is on yourarm, keep it in a sling or raised to shoulder level when sitting or standing; rest it on your chest or on a pillow at your side when lying down. If the splint is on yourfoot, keep it propped up above the level of your waist when sitting or lying. Avoid crutch walking as much as possible during this time. Keep the splint/cast dry at all times. Bathe with your splint/cast well out of the water, protected with a large plastic bag, rubber-banded at the top end. If a fiberglass cast or splint gets wet, you can dry it with a hair-dryer. Follow-up care Follow up with your doctor or this facility as advised. When to seek medical care Get prompt medical attention if any of the following occur: Bad odor from the splint or wound-fluid stains the splint The splint cracks or remains wet over 24 hours Increasing tightness or pressure under the splint Fingers or toes become swollen, cold, blue, numb or tingly Increased pain under the splint You have been given the following additional information: Fracture, Boxer's Splint Care, Fiberglass Do not work with left hand for four days until better. (Electronically signed by Kelsi Zaragoza PA-C 03/11/2017 0:21)
--- NOTE | 2017-03-11 00:22 | ED MED RECONCILIATION SUMMARY ---
Patient: MARLEN PEOPLES Medication Reconciliation Report [facility] VisitID: [id number] [address] [place] [address] 21y, M Registration Date/Time: 03/10/2017 Weight: 83.9 kg Height/Length: 72 in. BMI: 25.1 ALLERGIES: Aspirin, Trying not to take tylenol or ibuprofen due to pancreatitis The patient's Home Medications are listed below: CONTINUE TAKING THE FOLLOWING MEDICATIONS: "inhaler for esophagitis" Pantoprazole Sodium Oral 20 mg, daily The source(s) of the original Home Medication information: Not obtained. The following Medications were given to the patient in the Emergency Department: Dilaudid [IM] IM 1 mg, administered: 03/10/2017 8:37:00 PM The following Medications were prescribed to the patient: Dilaudid 2 mg: take 1 tablet orally every 12 hours as needed for pain. Dispense five (5). No refill. Substitution is permissible. -- Kelsi Zaragoza PA-C
--- NOTE | 2017-03-11 00:22 | ED MAR SUMMARY ---
..... Medication Administration Record [facility] [address] [place] [address] Patient: MARLEN PEOPLES Visit ID: [id number] 21y, M Weight: 83.9 kg Height/Length: 72 in BMI: 25.1 ALLERGIES: Trying not to take tylenol or ibuprofen due to pancreatitis, Aspirin Given 20:37 03/10/2017 Uriel, Bennie Martinez. Medication Administered: DILAUDID [IM] (HYDROMORPHONE HCL PF), Dose: 1 mg IM. Medication Ordered: Dilaudid IM 1 mg (HIGH ALERT MEDICATION, NOW).
== END 2017-03-10 21:20 | disposition home or self-care (01) ==
LOC: ED SRH 18:33
DX: S62.330A Displaced fracture of neck of second metacarpal bone, right hand, initial encounter for closed fracture (principal); W51.XXXA Accidental striking against or bumped into by another person, initial encounter; Y93.89 Activity, other specified; Y99.9 Unspecified external cause status; Y92.9 Unspecified place or not applicable; Z87.891 Personal history of nicotine dependence

== ENCOUNTER 2017-04-30 13:34 | Emergency (ER) | payer OTHER ==
--- NOTE | 2017-04-30 15:33 | ED ORDER SUMMARY ---
..... Patient: MARLEN PEOPLES OrderSheet [facility] VisitID: [id number] [place] [address] 21y, M Registration Date/Time: 04/30/2017 ORDER SHEET Weight: 65.7 kg (stated) Allergies: Gluten GENERAL ORDERS: CBC w Diff Urgent (14:44 04/30/2017 EKoroleva P.A.-C) (14:53 NKneeland R.N.) CMP Urgent (14:44 04/30/2017 EKoroleva P.A.-C) (14:53 NKneeland R.N.) PT with INR Urgent (14:44 04/30/2017 EKoroleva P.A.-C) (14:53 NKneeland R.N.) Urine Drug Screen Urgent (14:44 04/30/2017 EKoroleva P.A.-C) (14:53 NKneeland R.N.) TSH Urgent (14:44 04/30/2017 EKoroleva P.A.-C) (14:53 NKneeland R.N.) MEDICATION ORDERS: IV FLUIDS: IV Saline Lock (14:51 04/30/2017 EKoroleva P.A.-C) ORDER SHEET NOTES: [Electronically signed by Susanna Friend R.N. (16:14 04/30/2017)] [Electronically signed by Amy Meade PMoustaphaAMoustapha-C (17:30 04/30/2017)] [Electronically locked/signed by Susanna Friend R.N. (16:14 04/30/2017)]
--- NOTE | 2017-04-30 15:33 | ED CLINICAL REPORT ---
Clinical Report - Physicians/Mid Levels [facility] [address] [place] [address] 04/30/2017 13:34 Patient: MARLEN PEOPLES Time Seen: 17:23 Apr 30 2017. Arrived- By private vehicle. Historian- patient. HISTORY OF PRESENT ILLNESS Chief Complaint: "GOT THE SHAKES". Wants to stop drug use. Symptoms started 7 - 8 days. No tremors or seizure. Patient reports using street drugs, benzo, and has not been using sent over the last 7-8 days. Reports difficulty sleeping. Recently saw psychiatrist on 4 days prior to arrival, started on some medications for anxiety, non-benzoas well as a mood stabilizer. Denies SI/HI N/V weakness. REVIEW OF SYSTEMS The patient has not had weight loss. No headache, dizziness, chest pain, difficulty with urination or skin abscess. No joint pain. All systems otherwise negative, except as recorded above. SOCIAL HISTORY Never smoker. History of drug use h/o benzo pill use: marijuana. No alcohol use. Has social support. Has place to stay. ADDITIONAL NOTES The nursing notes have been reviewed. PHYSICAL EXAM Vital Signs: 04/30/2017 13:56 BP: 145/96. HR: 117. RR: 20. O2 saturation: 100%. Temp: 98 F. Pain level now: 6/10. Appearance: Alert. Eyes: Pupils equal, round and reactive to light. ENT: Normal ENT inspection. Neck: Normal inspection. CVS: Normal heart rate and rhythm. Heart sounds normal. No cardiac murmur. Respiratory: No respiratory distress. Abdomen: Soft. Neuro: Alert. Oriented X 3. Mood/affect normal. Cranial nerves normal (as tested). No cerebellar findings. No motor deficit. LABS, X-RAYS, AND EKG Laboratory Tests: CBC w Diff: (CHARLIE: 04/30/2017 14:22) ( MsgRcvd 04/30/2017 14:58) Final results Test Result Flag Units (Reference) WHITE BLOOD COUNT 5.0 K/uL (4.5-11.5) RED BLOOD COUNT 5.64 M/uL (4.50-5.90) HEMOGLOBIN 17.2 gm/dL (13.5-17.5) HEMATOCRIT 49.5 % (41.0-53.0) MEAN CELL VOLUME 88 fL (80-100) MEAN CORPUSCULAR HGB 31 pg (26-34) MEAN CORPUSCULAR HGB CONC 35 g/dL (31-37) RED CELL DISTRIBUTION WIDTH 11.6 % (11.6-14.8) PLATELET COUNT 220 K/uL (150-400) NEUTROPHIL % 76.2 H % (50-75) LYMPH % 19.4 L % (25-40) MONO % 4.0 % (3-14) EOSINOPHIL % 0.1 % (0-4) BASOPHIL % 0.3 % (0-2) PT with INR: (CHARLIE: 04/30/2017 14:22) ( [facility] 04/30/2017 14:58) Final results Test Result Flag Units (Reference) INR 1.1 (0.8-1.2) Low Intensity Therapy: INR 1.5-2.0 PT range 18.5-23.1Mod.Intensity Therapy: INR 2.0-3.0 PT range 23.1-31.5High Intensity Therapy: INR 2.5-3.5 PT range 27.4-35.5High Intensity Therapy 2: INR 3.0-4.0 PT range 31.5-39.3 Urine Drug Screen: (CHARLIE: 04/30/2017 14:50) ( [facility] 04/30/2017 15:24) Final results Test Result Flag Units (Reference) AMPHETAMINE/METHAMPHETAMINE NEGATIVE (NEGATIVE) BARBITURATE NEGATIVE (NEGATIVE) BENZODIAZEPINE NEGATIVE (NEGATIVE) CANNABINOID POSITIVE H (NEGATIVE) COCAINE NEGATIVE (NEGATIVE) ECSTASY NEGATIVE (NEGATIVE) METHADONE NEGATIVE (NEGATIVE) OPIATE NEGATIVE (NEGATIVE) The urine drug screen is a qualitative screening test fordrug overdose and abuse. All screen results should beconsidered as presumptive.Drugs screened for are as follows:BenzodiazepinesCocaineAmphetamines/MetamphetaminesTHC (Tetrahydrocannabinol)OpiatesBarbituratesEcstasyMethadonePositive results are unconfirmed. For confirmation, notifythe lab for the specimen to be sent to the reference lab.All confirmations must be performed by a differentmethodology.The ingestion of natural herbal and plant productscontaining Ephedra/Ephedra metabolites can produce in urineone or more substances capable of cross reacting withamphetamine/methamphetamine immunoassays. These testsprovide a preliminary result only. A more specificalternative chemical method must be used to obtain aconfirmed analytical result. CMP: (CHARLIE: 04/30/2017 14:22) ( MsgRcvd 04/30/2017 15:14) Final results Test Result Flag Units (Reference) GLUCOSE 107 mg/dL (70-110) BUN 14 mg/dL (7-18) CREATININE 1.0 mg/dL (0.6-1.3) Estimated GFR >60 mL/min Estimated GFR- >60 mL/min Note: Persistent reduction over 3 months in eGFR<60 mL/min/1.73 m2 defines CKD. Patients with eGFR values>=60 mL/min/1.73 m2 may also have CKD if evidence ofpersistent proteinuria. Additional information may be foundat www.kidney.org. SODIUM 140 mmol/L (136-145) POTASSIUM 3.1 L mmol/L (3.5-5.1) CHLORIDE 100 mmol/L (98-107) CARBON DIOXIDE 27 mmol/L (21-32) CALCIUM 9.4 mg/dL (8.5-10.1) TOTAL PROTEIN 8.5 H g/dL (6.4-8.2) ALBUMIN 5.1 H g/dL (3.3-5.0) BILIRUBIN, TOTAL 0.7 mg/dL (0.0-1.0) ALKALINE PHOSPHATASE 75 U/L (46-116) AST (SGOT) 15 U/L (15-37) ALT (SGPT) 14 U/L (12-78) THYROID STIMULATING HORMONE 0.748 uIU/mL (0.516-4.13) . PROGRESS AND PROCEDURES Course of Care: Patient here in the ER has no suicidal or homicidal ideation. He is anxious. Has had nausea vomiting diarrhea, he hasbeen off benzo's over last 7 or 8 days, and is through the worse so was drawn. He is very stable. Has had tried trazodone in the past, about 8 months previously for sleep with minimal relief, he is here with grandmother, who reports is comfortable staying with the patient. 04/30/2017 15:51 BP: 149/89. HR: 107. RR: 18. O2 saturation: 99%. Pain level now: 0/10. Patient is stable. Symptoms better. Patient/family counseled. Disposition: Discharged. CLINICAL IMPRESSION Hypokalemia Insomnia associated with drug (benzo withrawal). Benzo Withdrawal (stable) Medically Cleared. INSTRUCTIONS (follow up as desired with [facility]). Prescription Medications: Phenergan 12.5 mg tablets: take 1 orally every 6 hours as needed for nausea. Dispense ten (10). No refill Zofran (orally disintegrating tablets) 4 mg: take 1 orally every 6 hours as needed for nausea. Dispense ten (10). Substitution is permissible. Ambien 10 mg: take 1 orally at bedtime for 5 days as needed for sleep. Dispense five (5). No refill. Klor-Con 10 mEq: take 1 tablet orally every 8 hours. Dispense fifteen (15). No refills. Trazodone 100 mg: take 1 orally at bedtime for 10 days. Dispense ten (10). No refill. OTC Medications: Benadryl Allergy 25 mg (available over the counter): take 1-2 orally for 4 days, as needed for sleep. Dispense fifteen (15). No refill. Substitution is permissible. (Electronically signed by Amy Meade P.A.-C 04/30/2017 17:30)
--- NOTE | 2017-04-30 15:33 | ED ORDER SUMMARY ---
..... Patient: MARLEN PEOPLES OrderSheet [facility] VisitID: [id number] [place] [address] 21y, M Registration Date/Time: 04/30/2017 ORDER SHEET Weight: 65.7 kg (stated) Allergies: Gluten GENERAL ORDERS: CBC w Diff Urgent (14:44 04/30/2017 EKoroleva P.A.-C) (14:53 NKneeland R.N.) CMP Urgent (14:44 04/30/2017 EKoroleva P.A.-C) (14:53 NKneeland R.N.) PT with INR Urgent (14:44 04/30/2017 EKoroleva P.A.-C) (14:53 NKneeland R.N.) Urine Drug Screen Urgent (14:44 04/30/2017 EKoroleva P.A.-C) (14:53 NKneeland R.N.) TSH Urgent (14:44 04/30/2017 EKoroleva P.A.-C) (14:53 NKneeland R.N.) MEDICATION ORDERS: IV FLUIDS: IV Saline Lock (14:51 04/30/2017 EKoroleva P.A.-C) ORDER SHEET NOTES: [Electronically signed by Susanna Friend R.N. (16:14 04/30/2017)] [Electronically signed by Amy Meade PMoustaphaAMoustapha-C (17:30 04/30/2017)] [Electronically locked/signed by Susanna Friend R.N. (16:14 04/30/2017)]
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
--- NOTE | 2017-04-30 17:31 | ED DISCHARGE INSTRUCTIONS ---
Patient: MARLEN PEOPLES General Instructions [facility] VisitID: [id number] [place] [address] 21y, M Registration Date/Time: 04/30/2017 Hypokalemia Insomnia associated with drug (benzo withrawal). Benzo Withdrawal (stable) Medically Cleared. INSTRUCTIONS (follow up as desired with [facility]). Prescription Medications: Phenergan 12.5 mg tablets: take 1 orally every 6 hours as needed for nausea. Dispense ten (10). No refill Zofran (orally disintegrating tablets) 4 mg: take 1 orally every 6 hours as needed for nausea. Dispense ten (10). Substitution is permissible. Ambien 10 mg: take 1 orally at bedtime for 5 days as needed for sleep. Dispense five (5). No refill. Klor-Con 10 mEq: take 1 tablet orally every 8 hours. Dispense fifteen (15). No refills. Trazodone 100 mg: take 1 orally at bedtime for 10 days. Dispense ten (10). No refill. OTC Medications: Benadryl Allergy 25 mg (available over the counter): take 1-2 orally for 4 days, as needed for sleep. Dispense fifteen (15). No refill. Substitution is permissible. ADDITIONAL INFORMATION Hypokalemia Hypokalemia means a low level of potassium in the blood. This most often occurs in patients who take diuretics (water pills). It can also occur due to severe vomiting or diarrhea. A mild case usually causes no symptoms. It is only found with blood testing. More severe potassium loss causes generalized weakness, muscle or abdominal cramping, heart palpitations (rapid or irregular heartbeats) and low blood pressure. Home Care: 1) Take any potassium supplements prescribed. 2) Eat foods rich in potassium. The highest amount is found in artichoke, baked potatoes, spinach, cantaloupe, honeydew melon, cod, halibut, salmon, and scallops. White, red, or beltran beans are also very good sources. A modest amount is found in orange juice, bananas, carrots, and tomato juice. 3) Certain types of diuretics (water pills), such as Lasix (furosemide), require that you take potassium supplements for as long as you take the diuretic pills. If you are taking a diuretic, discuss the need for potassium supplements with your doctor. Follow Up with your doctor for a repeat blood test within the next week or as advised by our staff. Get Prompt Medical Attention if any of the following occur: -- Increased weakness -- Feeling dizzy -- Irregular heartbeat, extra beats or very fast heart rate -- Fainting spell Insomnia Insomnia refers to a difficulty going to sleep or staying asleep, or both. Insomnia has many causes, including anxiety, stress, depression, chronic pain, sleeping cycles out of balance due to working night shifts or excess napping during the day, and a condition called sleep apnea. Insomnia can be a side effect from stimulant medicines such as decongestants, asthma inhalers and pills, diet pills, and illegal drugs such as speed, crank, crack, and PCP. Home Care: Review your medicines with your doctor or pharmacist to find out if they can cause insomnia. Caffeine, smoking and alcohol also affect sleep. Limit your daily use and do not use these before bedtime. Alcohol may make you sleepy at first, but as its effects wear off, you may awaken a few hours later and have trouble returning to sleep. Do not exercise, eat or drink large amounts of liquid within 2 hours of your bedtime. Improve your sleep habits. Have a fixed bed and wake-up time. Try to keep noise, light and heat in your bedroom at a comfortable level. Try using earplugs or eyeshades if needed. Avoid watching TV in bed. If you do not fall asleep within 30 minutes, try to relax by reading or listening to soft music. Limit daytime napping to one 30 minute period, early in the day. Get regular exercise. Find other ways to lessen your stress level. If a medicine was prescribed to help reset your sleep patterns, take it as directed. Sleeping pills are intended for short-term use, only. If taken for too long, the effect wears off while the risk of physical addiction and psychological dependence increases. Follow-Up with your doctor or as directed by our staff if you feel that your insomnia is not responding to the above measures. Get Prompt Medical Attention if any of the following occur: Extreme restlessness or irritability Confusion or hallucinations (seeing or hearing things that are not there) Anxiety, depression Several days without sleeping You have been given the following additional information: Hypokalemia Insomnia (Electronically signed by Amy Meade P.A.-C 04/30/2017 17:30)
--- NOTE | 2017-04-30 17:31 | ED MAR SUMMARY ---
..... Medication Administration Record [facility] [address] [place], [place] [id number] Patient: MARLEN PEOPLES Visit ID: [id number] 21y, M Weight: 65.7 kg Height/Length: 72 in BMI: 19.7 ALLERGIES: Gluten
--- NOTE | 2017-04-30 17:31 | ED MED RECONCILIATION SUMMARY ---
Patient: MARLEN PEOPLES Medication Reconciliation Report [facility] VisitID: [id number] [place] [address] 21y, M Registration Date/Time: 04/30/2017 Weight: 65.7 kg Height/Length: 72 in. BMI: 19.7 ALLERGIES: Gluten The patient's Home Medications are listed below: THE FOLLOWING MEDICATIONS NEED TO BE RECONCILED: INHALER Mood stabilizer Oral inhaler Protonix Oral RisperiDONE Oral 2 mg, daily The source(s) of the original Home Medication information: Not obtained. The following Medications were given to the patient in the Emergency Department: None. The following Medications were prescribed to the patient: Phenergan 12.5 mg tablets: take 1 orally every 6 hours as needed for nausea. Dispense ten (10). No refill -- Koroleva, Amy, P.A.-C Zofran (orally disintegrating tablets) 4 mg: take 1 orally every 6 hours as needed for nausea. Dispense ten (10). Substitution is permissible. -- Koroleva, Amy, P.A.-C Ambien 10 mg: take 1 orally at bedtime for 5 days as needed for sleep. Dispense five (5). No refill. -- Koroleva, Amy, P.A.-C Klor-Con 10 mEq: take 1 tablet orally every 8 hours. Dispense fifteen (15). No refills. -- Joeoleva, Amy, P.A.-C Benadryl Allergy 25 mg (available over the counter): take 1-2 orally for 4 days, as needed for sleep. Dispense fifteen (15). No refill. Substitution is permissible. -- Koroleva, Amy, P.A.-C Trazodone 100 mg: take 1 orally at bedtime for 10 days. Dispense ten (10). No refill. -- Koroleva, Amy, P.A.-C
--- NOTE | 2017-04-30 17:31 | ED MAR SUMMARY ---
..... Medication Administration Record [facility] [address] [place], [place] [id number] Patient: MARLEN PEOPLES Visit ID: [id number] 21y, M Weight: 65.7 kg Height/Length: 72 in BMI: 19.7 ALLERGIES: Gluten
--- NOTE | 2017-04-30 17:31 | ED MED RECONCILIATION SUMMARY ---
Patient: MARLEN PEOPLES Medication Reconciliation Report [facility] VisitID: [id number] [place] [address] 21y, M Registration Date/Time: 04/30/2017 Weight: 65.7 kg Height/Length: 72 in. BMI: 19.7 ALLERGIES: Gluten The patient's Home Medications are listed below: THE FOLLOWING MEDICATIONS NEED TO BE RECONCILED: INHALER Mood stabilizer Oral inhaler Protonix Oral RisperiDONE Oral 2 mg, daily The source(s) of the original Home Medication information: Not obtained. The following Medications were given to the patient in the Emergency Department: None. The following Medications were prescribed to the patient: Phenergan 12.5 mg tablets: take 1 orally every 6 hours as needed for nausea. Dispense ten (10). No refill -- Koroleva, Amy, P.A.-C Zofran (orally disintegrating tablets) 4 mg: take 1 orally every 6 hours as needed for nausea. Dispense ten (10). Substitution is permissible. -- Koroleva, Amy, P.A.-C Ambien 10 mg: take 1 orally at bedtime for 5 days as needed for sleep. Dispense five (5). No refill. -- Koroleva, Amy, P.A.-C Klor-Con 10 mEq: take 1 tablet orally every 8 hours. Dispense fifteen (15). No refills. -- Joeoleva, Amy, P.A.-C Benadryl Allergy 25 mg (available over the counter): take 1-2 orally for 4 days, as needed for sleep. Dispense fifteen (15). No refill. Substitution is permissible. -- Koroleva, Amy, P.A.-C Trazodone 100 mg: take 1 orally at bedtime for 10 days. Dispense ten (10). No refill. -- Koroleva, Amy, P.A.-C
== END 2017-04-30 15:55 | disposition home or self-care (01) ==
LOC: ED SRH 13:34
DX: E87.6 Hypokalemia (principal); F13.239 Sedative, hypnotic or anxiolytic dependence with withdrawal, unspecified; G47.00 Insomnia, unspecified; G47.30 Sleep apnea, unspecified; Z79.899 Other long term (current) drug therapy; Z91.018 Allergy to other foods
CPT/HCPCS: 90100; 92760; 92761; 92762; 92763; 92764; 92765; 92766; 92767; 93140; 94060; 95059